=== PATIENT | male | born 1990 | race Two or more races ===

== ENCOUNTER → 2024-09-18 | Outpatient (CLI) | payer MEDICAID, SELFPAY ==
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
== END | disposition home or self-care (01) ==
LOC: CDIM 15:11
PROVIDERS: Referring Provider Nurse Practitioner Gerontology; Visit Provider Nurse Practitioner Gerontology
DX: M79.642 Pain in left hand (principal); M25.532 Pain in left wrist; S61.4 Open wound of hand; W34.010S Accidental discharge of airgun, sequela
CPT/HCPCS: 73110; 73130

== ENCOUNTER 2025-01-14 17:06 | Emergency (ER) | payer MEDICAID, SELFPAY ==
[2025-01-14 17:30] VITALS: BP 158/81; PULSE 86; RESP 16; TEMP 37; O2SAT 97; BMI 32.8
--- NOTE | 2025-01-14 17:31 | XR_ITS ---
Examination: Left knee 4 views TECHNIQUE: AP oblique lateral axial left knee 4 views Examination time: January 14, 2025 1748 hours INDICATIONS: Soccer injury to the knee today, knee pain. FINDINGS: No fracture or patellar dislocation. Moderate knee effusion IMPRESSION: No fracture or dislocation Moderate knee effusion
--- NOTE | 2025-01-14 17:43 | PD.EDRME ---
Rapid Medical Screening Exam E Arrival date/time: 01/14/25 17:06 34-year-old male presents to the emergency department complaint of left knee pain after injury while playing soccer today Chief Complaint: Fall Vital signs: Vital Signs Temperature 98.6 F 01/14/25 17:30 Pulse Rate 86 01/14/25 17:30 Respiratory Rate 16 01/14/25 17:30 Blood Pressure 158/81 H 01/14/25 17:30 Pulse Oximetry (%) 97 01/14/25 17:30 Oxygen Delivery Method Room Air 01/14/25 17:30
[2025-01-14] MEDS: IBUPROFEN TAB 400 MG TABLET 800 MG PO (18:00)
[2025-01-14] MEDS: HYDROcodone/APAP 5/325 TABLET 1 TAB PO (18:00)
--- NOTE | 2025-01-14 19:35 | XR_ITS ---
Examination: CT left knee, without contrast. 2-D sagittal reconstructions. 2-D coronal reconstructions. 3-D reconstructions. Date and time of exam:January 14, 2025 at 1939 hours INDICATIONS: Injury to the knee today, knee pain and swelling CTDI: vol (mGy):10.3 DLP: (mGycm):326 Technique: Multiple 1.25 mm axial sections of the left knee have been obtained. 2-D sagittal and coronal reconstructions have been obtained. 3-D reconstructions have been obtained. Low dose protocols were performed. One or more of the following dose reduction techniques were used; automated exposure control, adjustment of the mA and/or KV according to patient size, use of iterative reconstruction technique. Findings: Distal femur and femoral condyles intact No patellar dislocation Proximal tibia proximal fibula intact Moderate knee effusion IMPRESSION: No acute fracture Moderate knee effusion, seen with internal derangement of the knee MRI knee without contrast follow up would best assess for meniscus, cruciate or collateral ligament tears, as clinically warranted
[2025-01-14] MEDS: oxyCODONE/APAP 5/325 TABLET 1 TAB PO (19:40)
--- NOTE | 2025-01-14 21:27 | EDNOTE_ITS ---
ED Fall Injury RME/HPI General Chief Complaint: Fall Stated Complaint: FELL ON L) KNEE PLAYING SOCCER, VERY PAINFUL Time Seen by Provider: 01/14/25 18:37 Arrival date/time: 01/14/25 17:06 34 year old male present to emergency room with c/o of left knee injury today. LOCATION: knee SEVERITY: Symptoms are described as being severe with limitations on activities of daily living QUALITY: Symptoms are described as being dull or achy CONTEXT: playing soccer when injury knee DURATION/TIMING: The symptoms started approximately 1 day ASSOCIATED SYMPTOMS: The patient is unable to identify any other associated symptoms. MODIFYING FACTORS: The patient is unable to identify any alleviating or aggravating symptoms. PERTINENT ROS: no fevers, no headache, no neck or chest pain, no unexplained nausea or vomiting, no focal neurological deficits REVIEW OF SYSTEMS: See History of Present Illness - with the exception of those mentioned in the history of present illness, all other systems reviewed and reported as negative GENERAL: In general the patient is awake, interactive, in an emergency department gurney. HEAD/EYES/EARS/NOSE/THROAT: normo-cephalic, atraumatic, mucus membranes are moist, anicteric, palpebral conjunctiva is pink, trachea is midline. CARDIOVASCULAR: regular rate and regular rhythm, no murmurs, heart sounds are not distant, strong pulses in all four extremities that are equal and symmetric bilateral upper and lower extremities, normal capillary refill. CHEST/PULMONARY: normal chest rise and fall, good air movement, clear to auscultation bilaterally, normal inspiratory to expiratory ratios without evidence of respiratory distress. NECK: No midline/Paraspinal tenderness, no step off ROM/Strenght intact No Kernig and bruzinski sign. No trauma ABDOMEN: soft, not tender, no masses appreciated BACK: normal range of motion without pain. NEUROLOGICAL: cranio-facial features are symmetric, moves all four extremities equally without obvious limitations or weakness. EXTREMITY: Left knee swelling and tenderness, no bruising. no tenderness to palpation over the long bones or large joints of the bilateral upper extremities, no joint swelling, no unilateral leg swelling and no peripheral edema. slight limp on ambulation SKIN: warm, dry, well-perfused, no jaundice, no rash, no telangiectasias or petechia. PSYCH: calm, cooperative, no evidence of psychosis or agitation RME / HPI RME / HPI Narrative: 01/14/25 17:06 34-year-old male presents to the emergency department complaint of left knee pain after injury while playing soccer today Related Data Home Medications ?Medication ?Instructions ?Recorded ?Confirmed lisinopril 10 mg tablet 10 mg PO QDAY 05/02/2005/02 Previous Rx's ?Medication ?Instructions ?Recorded docusate sodium 100 mg capsule 100 mg PO BID #60 caps 05/02/20 (Colace) hydrocodone 5 mg-acetaminophen 325 1 tab PO Q6H PRN pa in #30 tabs 05/02/20 mg tablet (Paulding) ibuprofen 600 mg tablet 600 mg PO Q8H PRN pain (scal e 05/02/20 score 4-6) #20 tabs hydrocodone 5 mg-acetaminophen 325 1 tab PO Q8H PRN pa in #14 tabs 01/14/25 mg tablet ibuprofen 800 mg tablet (IBU) 800 mg PO TID PRN pain # 30 tabs 01/14/25 Allergies Allergy/AdvReac Type Severity Reaction Status Date / Time No Known Allergies Allergy Verified 01/14/25 17:09 Course Course Course Narrative: xray, ct, crutches, knee immobilizer Medical Decision Making Patient presenting for evaluation of L knee pain. Vital signs revealed no major abnormalities, no fever, no hypoxia, no tachycardia, no tachypnea. Diagnosis at this time most consistent with sprain, strain. Differential diagnosis considered including contusion, bruise, fracture.? These were thought to be less likely given the history, exam, and workup. Diagnostic testing performed: Xray imaging shows no evidence of fracture, CT knee shows no acute findings. Treatments provided included tylenol, ibuprofen, hydrocodone, crutches, with improvement in symptoms. Rest, fluids, and [id number] symptomatic treatments were recommended. Recommend over the counter Tylenol and Ibuprofen for fever/general discomfort. Recommend rest, ice, elevation, and compression. Patient prescribed Ibuprofen, Oxycodone. Follow up in three to five days, present to ER with new or worsening symptoms. Quality Measures none Orders Category Date Time Status Apply knee immobilizer NOW Care 01/14/25 21:18 Active Crutches .NOW Care 01/14/25 21:[address] knee LT wo con Stat Exams 01/14/25 19:35 Completed XR knee comp LT 4V Stat Exams 01/14/25 17:31 Completed HYDROcodone*/APAP 5/325 [Paulding 5/325] Med 01/14/25 17:31 Discontinued 1 tab PO X1 ONE Ibuprofen Tab [Motrin Tab] Med 01/14/25 17:31 Discontinued 800 mg PO X1 ONE oxyCODONE/APAP 5/325 [Percocet 5/325] Med 01/14/25 19:35 Discontinued 1 tab PO X1 ONE Reevaluation(s) Reevaluation #1: pain improved Vital Signs Vital signs: Vital Signs Temperature 98.6 F 01/14/25 17:30 Pulse Rate 86 01/14/25 17:30 Respiratory Rate 16 01/14/25 17:30 Blood Pressure 158/81 H 01/14/25 17:30 Pulse Oximetry (%) 97 01/14/25 17:30 Oxygen Delivery Method Room Air 01/14/25 17:30 Fall Patient data External records reviewed:: None Clinical information provided by:: patient Social determinants that could affect healthcare access:: none Patient has the following chronic illnesses:: n/a How is presenting disease/condition affected by chronic disease/condition?: no chronic disease Evaluation data The following diagnostics were reviewed and interpreted by me:: radiology exam(s) Lab and/or radiology exams considered but not ordered:: n/a Interpretation Summary: xray: knee effusion ct: Findings: Distal femur and femoral condyles intact No patellar dislocation Proximal tibia proximal fibula intact Moderate knee effusion IMPRESSION: No acute fracture Moderate knee effusion, seen with internal derangement of the knee MRI knee without contrast follow up would best assess for meniscus, cruciate or collateral ligament tears, as clinically warranted Medications / Prescriptions Medications or Prescriptions considered but not ordered:: n/a Medication administrations:: Medication Administration History Discontinued Medications Hydrocodone Bitart/Acetaminophen (Hydrocodone/Apap 5/325 Tablet) 1 tab PO X1 ONE Stop: 01/14/25 17:32 Last Admin: 01/14/25 18:00 Dose: 1 tab Documented By: JCARLOS Ibuprofen (Ibuprofen Tab 400 Mg Tablet) 800 mg PO X1 ONE Stop: 01/14/25 17:32 Last Admin: 01/14/25 18:00 Dose: 800 mg Documented By: JCARLOS Oxycodone/Acetaminophen (Oxycodone/Apap 5/325 Tablet) 1 tab PO X1 ONE Stop: 01/14/25 19:36 Last Admin: 01/14/25 19:40 Dose: 1 tab Documented By: JCARLOS as stated above Consultations Consultation(s) initiated? (list below): No Diagnosis Fall Differential Diagnosis: other (knee sprain, strain, effusion vs mcl/acl vs fracture ) Most likely diagnosis given after review of the tests above:: knee effussion possible acl/mcl strain/sprain Admission Indicated Admission indicated?: not indicated Admission Request Was there a request for admission?: No Disposition Plan Disposition Plan: Discharge Discharge Attestation Discharge Attestation: The patient and all family members were given an opportunity to ask questions and understood the discharge instructions. Discharge instructions specifically effects, indications for sooner follow up or return to the emergency department, and the expected course of current diagnosis. Patient condition: Stable Discharge Plan Plan Patient Disposition: HOME (Self Care) Health Concerns: Follow up with PCP in 1 week nonweight bearing for 1 week, Take tylenol or motrin as need May need MRI if symptoms has not improved Prescriptions/Referrals Prescriptions/Med Rec: New ibuprofen [IBU] 800 mg tablet 800 mg PO TID PRN (Reason: pain) Qty: 30 0RF hydrocodone-acetaminophen 5-325 mg tablet 1 tab PO Q8H MDD 3 PRN (Reason: pain) Qty: 14 0RF No Action lisinopril 10 mg Tablet 10 mg PO QDAY hydrocodone-acetaminophen [Paulding] 5-325 mg tablet 1 tab PO Q6H MDD 4 PRN (Reason: pain) Qty: 30 0RF docusate sodium [Colace] 100 mg capsule 100 mg PO BID Qty: 60 0RF ibuprofen 600 mg tablet 600 mg PO Q8H PRN (Reason: pain (scale score 4-6)) Qty: 20 0RF Referrals: No Primary/Family,Physician [Primary Care Provider] - In 1 week Problem List Clinical Impression: Effusion of knee Patient/Caregiver Discharge Instructions Education Materials: ED Knee Effusion Print Language: Senegalese Stand Alone Forms: Dilcia Award Info., Patient Portal Info Letter
== END 2025-01-14 21:29 | disposition home or self-care (01) ==
PROVIDERS: Emergency Provider Emergency Medicine
DX: S89.92XA Unspecified injury of left lower leg, initial encounter (principal); M25.462 Effusion, left knee; W19.XXXA Unspecified fall, initial encounter; Y93.66 Activity, soccer
CPT/HCPCS: 73564; 73700; 99284; A9270